=== PATIENT | male | born 1975 | race Caucasian/White ===

== ENCOUNTER 2024-02-16 10:10 | Outpatient (REF) | payer OTHER, SELFPAY ==
[2024-02-16 13:22] LABS: MANUAL DIFF FLAG NO
[2024-02-16 13:55] LABS: Basophils Percent Auto 0.5 % (0-2); Eosinophils Absolute Auto 0.2 X10*3/uL (0.0-0.4); Hematocrit 44.4 % (42.0-52.0); Hemoglobin 15.8 g/dl (14.0-18.0); Imm Gran Abs Auto 0.01 X10*3/uL (0.00-0.03); Imm Gran Pct Auto 0.1 % (0.0-0.4); Lymphocytes Absolute Auto 1.9 X10*3/uL (1.2-4.9); Lymphocytes Percent Auto 25.4 % (20-40); Mean Corpuscular HGB Conc 35.6 g/dl (31.0-36.0); Mean Corpuscular Hemoglobin 33.1 pg (27.0-33.0); Mean Corpuscular Volume 93.1 fL (80.0-98.0); Mean Platelet Volume 10.5 fL (9.4-12.4); Monocytes Absolute Auto 0.8 X10*3/uL (0.1-1.2); Monocytes Percent Auto 11.1 % (2-11); Neutrophils Absolute Auto 4.5 x10*3/uL (2.0-8.3); Neutrophils Percent Auto 60.9 % (45-73); Platelet Count 201 X10*3/uL (160-400); Red Blood Count 4.77 X10*6/uL (4.60-5.80); White Blood Count 7.5 X10*3/uL (4.8-10.8)
[2024-02-16 14:28] LABS: Alanine Aminotransferase 52 U/L (0-40); Anion Gap 15 (12-20); Aspartate Amino Transferase 56 U/L (5-37); Blood Urea Nitrogen 14 mg/dL (9-16); Calcium 10.1 mg/dL (8.4-10.2); Carbon Dioxide 23 mmol/L (22-29); Chloride 106 mmol/L (96-108); Cholesterol 228 mg/dL (<200); Estimated Glomerular Filt Rate > 60; Glucose Fasting 105 mg/dL (60-99); HDL Cholesterol 32 mg/dL (>40); LDL Cholesterol Calculated 125 mg/dL (<100); Potassium 4.3 mmol/L (3.3-5.1); Sodium 140 mmol/L (135-145); Triglycerides 359 mg/dL (<150)
[2024-02-16 14:37] LABS: Vitamin D 25-OH Total 20.3 ng/mL (>30)
== END 2024-02-16 10:11 | disposition home or self-care (01) ==
LOC: HO.HMGCLDS 10:10
PROVIDERS: PCP Internal Medicine; Visit Provider Internal Medicine
DX: Z00.01 Encounter for general adult medical examination with abnormal findings (principal); F95.2 Tourette's disorder; Z13.220 Encounter for screening for lipoid disorders; Z13.1 Encounter for screening for diabetes mellitus; Z23 Encounter for immunization; F17.200 Nicotine dependence, unspecified, uncomplicated
CPT/HCPCS: 36415; 80048; 80061; 82306; 84450; 84460; 85025; 90471; 90715; 96127; 99212; 99386

== ENCOUNTER 2024-02-16 10:10 | Outpatient (AMB) | payer OTHER, SELFPAY ==
--- NOTE | 2024-02-16 10:17 | MHC.PC.OV ---
Vital Signs 02/16/24 10:21 Height 6 ft 4 in Weight 266 lb BMI 32.4 BP 120/78 Blood Pressure Location Lt brachial Position Sitting Pulse 91 Pulse Source Pulse Oximeter Pulse Oximetry (%) 97 Oxygen Delivery Method Room Air Intake Visit Reasons: MILLER DISTILLERY/PE Intake Note: Pt is here today as a New Patient to [facility] care/PE Allergies copper Adverse Reaction (Verified 02/16/24 10:47) rash shellfish derived Adverse Reaction (Verified 02/16/24 10:47) Anaphylaxis nickel Adverse Reaction (Uncoded 02/16/24 10:47) rash Medication List - Last Reconciled 02/16/24 by Lucrecia Patterson MD nicotine 1 patch transdermal DAILY Tobacco use date assessed: 02/16/24 Dental Screening Dental Screen Date: 02/16/24 Did you have a dental visit in the last 12 months?: Yes Did you have a dental problem in the last 6 months where you did not have access to dental care?: Yes Was dental information given to patient?: Patient has dentist HPI MILLER DISTILLERY/PE HPI Details The patient is a 48-year-old male presenting to [facility] and for a physical examination. He has a history of tobacco use disorder, having smoked since age 11, with a reduction to approximately one pack per week currently aided by the use of 21 mg nicotine patches. The patient expresses intent to quit smoking. He experiences anaphylaxis with exposure to shellfish but has never used an Epipen, despite difficulty breathing after incidental exposure. His medical history is significant for Tourette Syndrome, diagnosed in childhood, with associated motor and vocal tics, and ADHD, both managed without medication since childhood. He reports ongoing symptoms of GERD, treated intermittently with Tums. The patient has a stress fracture history leading to discharge and experiences tension headaches potentially related to tobacco use reduction. There is an extensive family history of cardiovascular diseases and substance use disorders. He reports increased anxiety and ongoing depressive symptoms over the past few years, characterized by waves of sadness, not previously managed with medication. 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 - Family: Lives with a partner and four children, with a fifth child expected soon. The family includes a child with autism requiring significant attention. - Substance Use: Former heavy alcohol use; now drinks rarely. History of smoking for approximately 37 years. - Nutritional Habits: Irregular diet, typically convenience foods from nearby shops. - Activity Level: Limited exercise; no specific programs mentioned. PFSH Medical History Hx of stress fracture History of fracture of wrist Cigarette smoker one half pack a day or less ADHD Tourette syndrome Cigarette smoker motivated to quit Family History Father Substance use disorder Acute [place] CAD (coronary artery disease) Carotid artery stenosis Gastric ulcer Alcoholism Maternal Aunt Substance use disorder Alcoholism Maternal Uncle Substance use disorder Alcoholism Mother Mental health disorder ADHD Maternal Grandfather Acute [place] Paternal Grandfather CVA (cerebral vascular accident) Acute [place] Paternal Grandmother Acute [place] CVA (cerebral vascular accident) Social History Housing: House Patient Tobacco Use Status: Current someday Tobacco user Tobacco use type: Cigarette e-Cigarette/Vaping Use: Never Used service: Yes Current occupational status: employed Cognitive needs: No Hearing needs: No Vision needs: Yes Questionnaire PHQ-9 Over the last 2 weeks, how often have you been bothered by any of the following problems? 1. Little interest or pleasure in doing things: several days 2. Feeling down, depressed, or hopeless: several days 3. Trouble falling or staying asleep, or sleeping too much: more than half the days 4. Feeling tired or having little energy: several days 5. Poor appetite or overeating: more than half the days 6. Feeling bad about yourself - or that you are a failure or have let yourself or your family down: several days 7. Trouble concentrating on things, such as reading the newspaper or watching television: several days 8. Moving or speaking so slowly that other people could have noticed. Or the opposite - being so fidgety or restless that you have been moving around a lot more than usual: several days 9. Thoughts that you would be better off or of hurting yourself in some way: several days Total score: 11 Depression Screening Interpretation: Positive Depression Screening Done: Yes 10536 - PHQ-9 Billing: Yes Source: Developed by Drs. Pedro Best, Chichi Mast, Slava Chicas and colleagues, with an educational kosta from [employer]. Thrive Questionnaire Date Thrive assessed: 02/16/24 I am a: Patient What is your living situation today?: I have a steady place to live Within the past 12 months, did the food you bought not last and you didn't have the money to get more?: Never true Within the past 12 months, did you worry whether your food would run out before you got money to buy more?: Never true Do you have trouble paying for medicines?: Yes Do you have trouble getting transportation to medical appointments?: No Do you have trouble paying your heating and electricity bill?: Yes Do you have trouble taking care of your child, family member or friend?: No Do you have trouble with day-to-day activities such as bathing, preparing meals, shopping, managing finances, etc.?: No Are you currently unemployed and looking for a job?: No Are you interested in more education?: I choose not to answer this question Please select the resources that you would like help with: None Currently or been in a relationship where the following occur: I choose not to answer THRIVE Score: 1 AUDIT C Alcohol Use Questionnaire (AUDIT-C) 1. How often do you have a drink containing alcohol?: Monthly or less 2. How many drinks containing alcohol do you have on a typical day when you are drinking?: 3 or 4 3. How often do you have six or more drinks on one occasion?: Less than monthly Total Score: 3 JOSE-7 AMB Questionnaire JOSE-7 Date JOSE - 7 assessed: 02/16/24 Feeling nervous, anxious, or on edge: 1 = Several days Not being able to stop or control worryin = Several days Worrying too much about different things: 1 = Several days Trouble relaxin = Nearly every day Being so restless that it is hard to sit still: 3 = Nearly every day Becoming easily annoyed or irritable: 3 = Nearly every day Feeling afraid as if something awful might happen: 0 = Not at all Total JOSE-7 score (0-4 normal; 5-9 mild; 10-14 moderate; 15-21 severe): 12 Source: Developed by Drs. Pedro Best, Chichi Mast, Slava Chicas and colleagues, with an educational kosta from [employer] JOSE-7 Assessment Billing JOSE-7 Assessment Tool: JOSE-7 Assessment 24426 (declined referral for therapy or starting medication ) Review of Systems Const Reports no additional complaints Eyes Details: UTD with eye exam - Rich Warren in [address] in [place] Reports requires corrective lenses ENT Reports no additional complaints Card Reports no additional complaints Resp Details: recurrent dry cough GI Denies melena, Denies hematochezia, Denies change in bowel habits and Reports heartburn (takes TUMS) Reports no additional complaints Musc Reports no additional complaints Skin/Breast Denies dry skin, Denies lesions and Denies rash Neuro Reports no additional complaints Psych Reports as per HPI Endo Reports no additional complaints Antonio/Lymph Reports no additional complaints Aller/Immun Reports no additional complaints Physical exam (Primary Care) Vital Signs: Last Vital Signs Pulse 91 02/16/24 10:21 BP 120/78 02/16/24 10:21 Pulse Ox 97 02/16/24 10:21 Oxygen Delivery Method Room Air 02/16/24 10:21 BMI result Body Mass Index 32.4 Tobacco/Smoking Status: Tobacco use Status Tobacco use date assessed 02/16/24 02/16/24 10:28 Patient Tobacco Use Status Current someday Tobacco 02/16/24 10:28 Tobacco use type Cigarette 02/16/24 10:28 e-Cigarette/Vaping Use Never Used 02/16/24 10:28 PHQ-9: PHQ-9 Score PHQ-9: Total score 11 02/17/24 01:22 Depression Screening Interpretation: Positive Thrive Assessment: Date of Thrive Assessment Date Thrive assessed 02/16/24 02/16/24 10:28 Currently or been in a relationship where the following occur: I choose not to answer Advance Care Planning discussion: Completed/Scanned Date of discussion: 02/16/24 Who was present: patient Forms completed: Health Care Proxy Time spent: 16-45 minutes Actual minutes spent: 3 Const General: comfortable, no acute distress and alert Nutritional Appearance: obese Orientation/consciousness: patient oriented x3 HENMT Ears: external ears normal and TM's normal bilaterally General nose exam: Normal external nose present and No nasal discharge present Mouth: Normal oral and palatal mucosa present, oropharynx normal and moist mucous membranes Eyes General: appearance normal, both eyes and all related structures Conjunctivae: conjunctivae normal Sclerae: sclerae normal Pupils: Equal, round and reactive pupils present EOM: EOMs intact bilaterally Neck Neck: Yes full ROM, Yes no lymphadenopathy and Yes supple Chest Chest palpation & inspection: normal inspection of the chest and no tenderness Resp Effort & Inspection: normal respiratory effort and able to speak in complete sentences Auscultation: clear to auscultation bilaterally Cardio Rate: regular rate Rhythm: regular rhythm Heart sounds: S1 normal heart sound present and S2 normal heart sound present GI Palpation (GI): Soft to palpation, nontender and no masses Auscultation: normal bowel sounds General: Yes no CVA tenderness Male General Exam: Yes normal external exam Back/Spine/Pelvis Back: no CVA tenderness and No back tenderness Skin General skin exam: no rashes or lesions noted Neuro General: patient oriented x3, gait normal, tone normal, moves all extremities, Normal light touch and pain sensation and no focal motor deficits Cranial nerves: Yes CN's II-XII intact bilaterally and Yes Equal, round and reactive pupils present Cognition (Neuro): normal cognition Extrem General: Yes full ROM, Yes no joint enlargement, Yes no clubbing, cyanosis or edema and Yes no calf tenderness Psych Appearance: grossly normal and well kempt Mental Status: mental status grossly normal Speech and movement: Normal speech and movement present Affect: normal affect Attitude: cooperative Thought process: Normal thought process present Thought content: Normal thought content present Immunizations Boostrix Tdap 2.5 Lf unit-8 mcg-5 Lf/0.5 mL intramuscular syringe Performing Provider: Lucrecia Patterson MD Performing Location: [facility] [place] [facility] [place] [facility] Administered by: Camila Estrada CMA on 02/16/24 11:33 Dose Route Admin Location Dispensed Lot Number Expiration Date NDC [employer] 0.5 mL IM Right Deltoid 0.5 mL [id number] 12/25/24 [id number] [employer] VIS Given Date VIS Provided VIS Publication Date 02/16/24 Single Vaccine 20 Eligibility Eligibility Date Funding Source Not [facility] Eligible 02/16/24 Private Coding Level of Care Code Est Pt Level 4 (29894) New Pt Prev Care 40-64y(52032) Diagnoses Annual visit for general adult medical examination with abnormal findings Z00.01 Cigarette smoker motivated to quit F17.210 Cigarette smoker one half pack a day or less F17.210 Encounter for counseling regarding advance directives Z71.89 Tourette syndrome F95.2 Additional Codes JOSE-7 Assessment Billing - JOSE-7 Assessment Tool: JOSE-7 Assessment 05591 ([id number]) PHQ-9 - 14149 - PHQ-9 Billing: Yes ([id number]) Vital Signs *Quality* - Advance Care Planning discussion: Completed/Scanned ([id number]) Vital Signs *Quality* - Time spent: 16-45 minutes ([id number]) Assessment & Plan Assessment & Plan (1) Annual visit for general adult medical examination with abnormal findings: Code(s): Z00.01 - Encounter for general adult medical examination with abnormal findings Plan: TDap given today , declined flu and covid booster (2) Cigarette smoker motivated to quit: Code(s): F17.210 - Nicotine dependence, cigarettes, uncomplicated Category: Social Hx (3) Cigarette smoker one half pack a day or less: Code(s): F17.210 - Nicotine dependence, cigarettes, uncomplicated Category: Social Hx (4) Encounter for counseling regarding advance directives: Code(s): Z71.89 - Other specified counseling Plan: Initiated the conversation about Advanced Directives. Advanced Directives help patients prepare for current and future decisions about their medical treatment and place of care. Discussed with patient that it is a process where a patients current condition and prognosis are reviewed, their wishes for information regarding their illness are elicited, and likely medical dilemmas are presented and options discussed. Health Care proxy form completed. The form can be amended as needed, reviewed yearly and make changes as needed (5) Tourette syndrome: Code(s): F95.2 - Tourette's disorder Category: Medical Plan: asymptomatic Plan - Tobacco Use Disorder: Continue nicotine patch; educate on rotating application sites to prevent skin irritation. - Anaphylaxis: Discussed risks and benefits of Epipen, patient opted against prescription. - Astigmatism: Referral to cotton ball machine tender discussed. - GERD: Recommend trial of omeprazole for two months. - Anxiety & Depression: Patient encouraged to consider therapy; pharmacotherapy not initiated. - Vaccinations: Administer Tdap vaccine today. - Respiratory Concerns: Order pulmonary function test. - Stress Fractures: No current intervention; history noted. During this visit, I discussed the importance of rotating nicotine patches to reduce skin irritation and recommended lifestyle modifications to aid smoking cessation. I advised on acquiring an Epipen due to the history of anaphylaxis, despite the patient declining it presently. We reviewed the need for ophthalmologic assessment for possible optic neuritis. I initiated protective measures against pertussis through recommended vaccination due to pending exposure. I advised dietary modifications to address gastrointestinal reflux and discussed an omeprazole trial. We reviewed the significant family history of cardiovascular disease leading to preventive strategies, including laboratory screenings. Concerns about anxiety and depression were addressed, suggesting possible therapy; I advised monitoring stress and utilizing coping mechanisms, considering the familial and personal history of substance and mental health disorders. Anticipatory guidance was given regarding respiratory health and potential testing for smoking-related lung disease. Acknowledging the patient's plan to return for ongoing health maintenance and wellness visits was emphasized. - Continue using nicotine patches daily and rotate application sites. - Engage emergency services if anaphylaxis occurs, utilizing [id number] antihistamines if mild. - Follow a heart-healthy diet reducing rice and carbohydrate-heavy meals. - Schedule an appointment with an cotton ball machine tender. - Begin omeprazole as directed for GERD management. - Attend follow-up for lab results; ensure coordination of pulmonary testing. - Monitor mental health symptoms and consider counseling services. - Receive Tdap vaccine today and anticipate arm soreness; take Tylenol for relief. - Arrange next year?s physical exam and complete enrollment in the patient portal for communications. Patient was informed and verbally consented to the use of an ambient scribe for clinic note documentation during this visit. Orders: Orders PFT pulmonary function test 02/16/24 F17.210 - Nicotine dependence, cigarettes, uncomplicated, Z71.89 - Other specified counseling Lipid Panel 02/16/24 F95.2 - Tourette's disorder, Z00.01 - Encounter for general adult medical examination with abnormal findings, Z13.1 - Encounter for screening for diabetes mellitus, Z13.220 - Encounter for screening for lipoid disorders Aspartate Amino Transferase 02/16/24 F95.2 - Tourette's disorder, Z00.01 - Encounter for general adult medical examination with abnormal findings, Z13.1 - Encounter for screening for diabetes mellitus, Z13.220 - Encounter for screening for lipoid disorders Vitamin D 25-OH Total 02/16/24 F95.2 - Tourette's disorder, Z00.01 - Encounter for general adult medical examination with abnormal findings, Z13.1 - Encounter for screening for diabetes mellitus, Z13.220 - Encounter for screening for lipoid disorders Complete Blood Count Auto Diff 02/16/24 F95.2 - Tourette's disorder, Z00.01 - Encounter for general adult medical examination with abnormal findings, Z13.1 - Encounter for screening for diabetes mellitus, Z13.220 - Encounter for screening for lipoid disorders Alanine Aminotransferase 02/16/24 F95.2 - Tourette's disorder, Z00.01 - Encounter for general adult medical examination with abnormal findings, Z13.1 - Encounter for screening for diabetes mellitus, Z13.220 - Encounter for screening for lipoid disorders Basic Metabolic Panel Fasting 02/16/24 F95.2 - Tourette's disorder, Z00.01 - Encounter for general adult medical examination with abnormal findings, Z13.1 - Encounter for screening for diabetes mellitus, Z13.220 - Encounter for screening for lipoid disorders TDaP Immunization 02/16/24 Z23 - Encounter for immunization
[2024-02-16 10:21] VITALS: BP 120/78; PULSE 91; O2SAT 97; BMI 32.4
== END 2024-02-16 11:36 | disposition home or self-care (01) ==
PROVIDERS: PCP Internal Medicine; Visit Provider Internal Medicine
DX: Z00.00 Encounter for general adult medical examination without abnormal findings (principal); F95.2 Tourette's disorder; F17.210 Nicotine dependence, cigarettes, uncomplicated; Z71.89 Other specified counseling

== ENCOUNTER 2024-04-01 09:50 | Outpatient (REF) | payer OTHER, SELFPAY ==
[2024-04-01 09:20] VITALS: PULSE 67; O2SAT 97
--- NOTE | 2024-04-01 09:54 | PFT_ITS ---
Indication: Dyspnea Spirometry [FEV1 to FVC 71%; FEV1 4.05 L; FVC 5.68 L. trend response to bronchodilators noted. Flow volume loop appears to demonstrate a concavity during the expiratory limb suggesting obstructive physiology.] Lung Volumes [Total lung capacity 92% predicted; Residual volume 92% predicted; expiratory reserve volume 28% predicted] Diffusion Capacity [DLCO 82% predicted] Comparisons [None] Interpretation [There appears to be a mild obstructive ventilatory defect consistent with mild COPD versus uncontrolled asthma. The patient does have a trend response to bronchodilators noted. Lung volumes are normal except for decrease in the expiratory reserve volume secondary to an elevated BMI. Diffusion capacity is low normal. Clinical correlation warranted.] MTDD
== END 2024-04-01 09:51 | disposition home or self-care (01) ==
LOC: HO.RESP 09:50
PROVIDERS: PCP Internal Medicine; Visit Provider Internal Medicine
DX: Z71.89 Other specified counseling (principal); F17.210 Nicotine dependence, cigarettes, uncomplicated
CPT/HCPCS: 94010; 94640; 94727; 94729

== ENCOUNTER → 2024-04-01 09:54 | Outpatient (BNV) | payer OTHER, SELFPAY | PROVIDERS: PCP Internal Medicine; Visit Provider Hospitalist | DX: R06.09 Other forms of dyspnea (principal); F17.210 Nicotine dependence, cigarettes, uncomplicated | CPT/HCPCS: 94060; 94727; 94729 ==